=== PATIENT | male | born 1975 | race African-American/Black ===

== ENCOUNTER 2020-01-31 12:14 | Emergency (ER) | payer MEDICAID ==
[~2020-01-31] VITALS: Ht 182.9 cm; Wt 77.0 kg
[2020-01-31] MEDS ORDERED: SODIUM CHLORIDE 0.9% 1,000 ML IV ONE (12:26)
[2020-01-31] MEDS ORDERED: LEVETIRACETAM 1000MG/100ML 100 ML IV ONE (12:30)
[2020-01-31 13:00] LABS: HEMATOCRIT. 35.6 % (42.0-52.0); HEMOGLOBIN. 12.5 g/dL (14.0-18.0); MEAN CORPUSCULAR HEMOGLOBIN 37.4 pg (28.0-32.0); MEAN CORPUSCULAR VOLUME 106.4 fL (80.0-94.0); MEAN PLATELET VOLUME 8.5 fl (7.4-10.4); PLATELET 109 x1000/uL (130-400); RED BLOOD CELL COUNT 3.35 mill/uL (4.7-6.1); RED CELL DISTRIBUTION WIDTH 16.6 % (11.6-14.6)
[2020-01-31 13:06] LABS: CHLORIDE 100 mEq/L (98-107)
[2020-01-31 13:11] LABS: ETHANOL BLOOD < 10 mg/dL
[2020-01-31 13:14] LABS: CLARITY URINE CLOUDY (CLEAR); COLOR URINE DK YELLOW (YELLOW); KETONES URINE TRACE (NEGATIVE); LEUKOCYTE ESTERASE URINE NEGATIVE (NEGATIVE); NITRITE URINE NEGATIVE (NEGATIVE); OCCULT BLOOD URINE TRACE (NEGATIVE); PROTEIN URINE 2+ (NEGATIVE); SPECIFIC GRAVITY URINE 1.022 (1.005-1.030)
[2020-01-31 13:24] LABS: *COCAINE SCREEN URINE NEGATIVE (NEGATIVE); METHADONE URINE SCREEN NEGATIVE (NEGATIVE)
[2020-01-31 13:25] LABS: *AMPHETAMINES SCREEN URINE NEGATIVE (NEGATIVE); *BARBITURATES SCREEN URINE NEGATIVE (NEGATIVE); *BENZODIAZEPINES SCREEN URINE NEGATIVE (NEGATIVE); CANNABINOID URINE SCREEN PRESUMTIVE POSITIVE (NEGATIVE); OPIATES URINE SCREEN NEGATIVE (NEGATIVE); PHENCYCLIDINE URINE SCREEN NEGATIVE (NEGATIVE)
[2020-01-31 13:28] LABS: PLATELET ESTIMATE DECREASED
[2020-01-31] MEDS ORDERED: POTASSIUM CHLORIDE 20MEQ TABLET SR PO ONE (15:30)
[2020-01-31 18:22] VITALS: BP 134/79
== END 2020-01-31 18:26 | disposition home or self-care (01) ==
LOC: ER 12:14
DX: G40.909 Epilepsy, unspecified, not intractable, without status epilepticus (principal); E87.6 Hypokalemia; I10 Essential (primary) hypertension; S60.511A Abrasion of right hand, initial encounter; W01.0XXA Fall on same level from slipping, tripping and stumbling without subsequent striking against object, initial encounter; Y93.89 Activity, other specified; Y92.89 Other specified places as the place of occurrence of the external cause; Z87.19 Personal history of other diseases of the digestive system
CPT/HCPCS: 36415; 70450; 80053; 80305; 80320; 81003; 85025; 96365; 99285; J1953; J7030; G0480

== ENCOUNTER 2020-12-23 19:45 | Emergency (ER) | payer MEDICAID ==
[~2020-12-23] VITALS: Ht 172.7 cm; Wt 70.0 kg
[2020-12-23] MEDS ORDERED: LEVETIRACETAM 500MG PREMIX 100 ML IV ONE (20:15)
[2020-12-23 20:21] LABS: BASOPHILS % 1.4 % (0.0-2.0); EOSINOPHILS % 1.6 % (0.0-5.0); HEMATOCRIT. 35.5 % (42.0-52.0); HEMOGLOBIN. 11.9 g/dL (14.0-18.0); LYMPHOCYTES % 16.2 % (20.0-50.0); MEAN CORPUSCULAR HEMOGLOBIN 36.5 pg (28.0-32.0); MEAN CORPUSCULAR VOLUME 108.6 fL (80.0-94.0); MEAN PLATELET VOLUME 7.1 fl (7.4-10.4); MONOCYTES % 9.7 % (2.0-8.0); NEUTROPHILS % 71.1 % (40.0-76.0); PLATELET 432 x1000/uL (130-400); RED BLOOD CELL COUNT 3.27 mill/uL (4.7-6.1); RED CELL DISTRIBUTION WIDTH 14.7 % (11.6-14.6)
[2020-12-23 20:24] LABS: CLARITY URINE CLEAR (CLEAR); COLOR URINE DARK YELLOW (YELLOW); KETONES URINE TRACE (NEGATIVE); LEUKOCYTE ESTERASE URINE NEGATIVE (NEGATIVE); NITRITE URINE NEGATIVE (NEGATIVE); OCCULT BLOOD URINE NEGATIVE (NEGATIVE); PH URINE 6.5 (4.5-8.0); PROTEIN URINE 2+ (NEGATIVE); SPECIFIC GRAVITY URINE 1.028 (1.005-1.030)
[2020-12-23 20:28] LABS: CHLORIDE 95 mEq/L (98-107)
[2020-12-23 20:32] LABS: ETHANOL BLOOD < 10 mg/dL
[2020-12-23 20:34] LABS: *AMPHETAMINES SCREEN URINE NEGATIVE (NEGATIVE); *BARBITURATES SCREEN URINE NEGATIVE (NEGATIVE); *BENZODIAZEPINES SCREEN URINE NEGATIVE (NEGATIVE); *COCAINE SCREEN URINE NEGATIVE (NEGATIVE)
[2020-12-23 20:35] LABS: CANNABINOID URINE SCREEN PRESUMTIVE POSITIVE (NEGATIVE); METHADONE URINE SCREEN NEGATIVE (NEGATIVE); OPIATES URINE SCREEN NEGATIVE (NEGATIVE); PHENCYCLIDINE URINE SCREEN NEGATIVE (NEGATIVE)
[2020-12-23] MEDS ORDERED: SODIUM CHLORIDE 0.9% 1,000 ML IV ONE (22:00)
[2020-12-23] MEDS ORDERED: KETOROLAC 15MG/ML VIAL IV ONE (22:45)
[2020-12-24 01:04] VITALS: BP 146/99
== END 2020-12-24 01:10 | disposition home or self-care (01) ==
LOC: ER 19:45
DX: R56.9 Unspecified convulsions (principal)
CPT/HCPCS: 36415; 80053; 80305; 80320; 81003; 85025; 93005; 96361; 96365; 96375; 99284; J1885; J1953; G0480

== ENCOUNTER 2021-12-15 05:06 | Inpatient (IN) | payer MEDICAID ==
[~2021-12-15] VITALS: Ht 175.3 cm; Wt 57.4 kg
[2021-12-15] MEDS ORDERED: LEVETIRACETAM 500MG PREMIX 100 ML IV ONE ×2 (05:30)
[2021-12-15] MEDS ORDERED: SODIUM CHLORIDE 0.9% 1,000 ML IV ONE (05:30)
[2021-12-15 06:32] LABS: CHLORIDE 93 mEq/L (98-107)
[2021-12-15 06:40] LABS: ETHANOL BLOOD 46 mg/dL
[2021-12-15 06:43] LABS: CREATINE KINASE 394 IU/L (39-308)
[2021-12-15 07:27] LABS: VALPROIC ACID < 3.0 ug/mL (50-100)
[2021-12-15 07:48] LABS: BASOPHILS % 0.6 % (0.0-2.0); EOSINOPHILS % 2.7 % (0.0-5.0); HEMATOCRIT. 40.6 % (42.0-52.0); LYMPHOCYTES % 13.8 % (20.0-50.0); MEAN CORPUSCULAR HEMOGLOBIN 35.2 pg (28.0-32.0); MEAN CORPUSCULAR VOLUME 102.4 fL (80.0-94.0); MEAN PLATELET VOLUME 8.9 fl (7.4-10.4); MONOCYTES % 7.8 % (2.0-8.0); NEUTROPHILS % 75.1 % (40.0-76.0); PLATELET 184 x1000/uL (130-400); RED BLOOD CELL COUNT 3.97 mill/uL (4.7-6.1); RED CELL DISTRIBUTION WIDTH 15.7 % (11.6-14.6)
[2021-12-15] MEDS ORDERED: SODIUM CHLORIDE 0.9% 1,000 ML IV NR (08:30)
[2021-12-15 08:43] LABS: BG BASE EXCESS -4.9 mmol/L (-2.0-2.0); BG CARBOXYHEMOGLOBIN 2.1 % (0.5-1.5); BG DEOXYHEMOGLOBIN 2.9 % (0.0-5.0); BG HCO3 ACT 18.9 mmol/L (22.0-26.0); BG METHEMOGLOBIN 0.1 % (0.0-1.5); BG OXYHEMOGLOBIN 94.9 % (94.0-97.0); BG PCO2 31.4 mmHg (35.0-45.0); BG PH 7.398 (7.350-7.450); BG PO2 96.2 mmHg (75.0-100.0); BG SAMPLE SITE RIGHT RADIAL; BG TOTAL HEMOGLOBIN 12.2 g/dL (12.0-18.0); BG VENT MODE ROOM AIR
[2021-12-15] MEDS ORDERED: SODIUM BICARBONATE 8.4% 1 MEQ/ML 50ML SYR IV ONE (11:45)
[2021-12-15 12:28] LABS: CHLORIDE 98 mEq/L (98-107)
[2021-12-15 12:34] LABS: ETHANOL BLOOD < 10 mg/dL
[2021-12-15 14:24] LABS: CLARITY URINE CLEAR (CLEAR); COLOR URINE YELLOW (YELLOW); KETONES URINE TRACE (NEGATIVE); LEUKOCYTE ESTERASE URINE NEGATIVE (NEGATIVE); NITRITE URINE NEGATIVE (NEGATIVE); OCCULT BLOOD URINE NEGATIVE (NEGATIVE); PROTEIN URINE 1+ (NEGATIVE); SPECIFIC GRAVITY URINE 1.018 (1.005-1.030)
[2021-12-15 14:44] LABS: METHADONE URINE SCREEN NEGATIVE (NEGATIVE); OPIATES URINE SCREEN NEGATIVE (NEGATIVE)
[2021-12-15 14:45] LABS: *AMPHETAMINES SCREEN URINE NEGATIVE (NEGATIVE); *BARBITURATES SCREEN URINE NEGATIVE (NEGATIVE); *BENZODIAZEPINES SCREEN URINE NEGATIVE (NEGATIVE); *COCAINE SCREEN URINE NEGATIVE (NEGATIVE); CANNABINOID URINE SCREEN NEGATIVE (NEGATIVE); PHENCYCLIDINE URINE SCREEN NEGATIVE (NEGATIVE)
[2021-12-15 16:00] VITALS: BP 136/96
[2021-12-15] MEDS ORDERED: DIPHENHYDRAMINE 50MG/ML VIAL IV PRN (16:45)
[2021-12-15] MEDS ORDERED: ONDANSETRON HCL 4MG/2ML INJ IV PRN (16:45)
[2021-12-15] MEDS ORDERED: NA PHOS,M-B/NA PHOS,DI-BA ENEMA 118ML PR PRN (16:45)
[2021-12-15] MEDS ORDERED: MAGNESIUM/ALUMINUM HYDROXIDE/SIMETHICONE 30ML UDC PO PRN (16:45)
[2021-12-15] MEDS ORDERED: CLONIDINE 0.1MG TABLET PO PRN (16:45)
[2021-12-15] MEDS ORDERED: ACETAMINOPHEN 650MG SUPP PR PRN (16:45)
[2021-12-15] MEDS ORDERED: DOCUSATE SODIUM 100MG CAPSULE PO PRN (16:45)
[2021-12-15] MEDS ORDERED: LORAZEPAM 0.5MG TABLET PO PRN (16:45)
[2021-12-15] MEDS ORDERED: IPRATROPIUM/ALBUTEROL 0.5-3(2.5)MG/3ML NEB NEB PRN (16:45)
[2021-12-15] MEDS ORDERED: LEVETIRACETAM 500 MG in SODIUM CHLORIDE 0.9% 100 ML IV SCH (16:45)
[2021-12-15] MEDS ORDERED: ACETAMINOPHEN 325MG TABLET PO PRN (16:45)
[2021-12-15] MEDS ORDERED: GUAIFENESIN 200MG/10ML SUGAR FREE UDC PO PRN (16:45)
[2021-12-15] MEDS ORDERED: HYDROCODONE/ACETAMINOPHEN 5/325MG TABLET PO PRN (16:45)
[2021-12-15] MEDS ORDERED: NALOXONE HCL 0.4MG/ML VIAL IV PRN (17:00)
[2021-12-15] MEDS: DEXT 5%/0.9% NACL 1,000 ML IV SCH (17:42)
[2021-12-15] MEDS: PANTOPRAZOLE SODIUM 40 MG/VIAL IV SCH (17:42)
[2021-12-15] MEDS ORDERED: KEPP500 MT (19:43)
[2021-12-15] MEDS ORDERED: LOPHC2 MT (19:43)
[2021-12-15] MEDS ORDERED: METO-396 PO (19:43)
[2021-12-15 19:59] VITALS: BP 136/96
[2021-12-15 20:00] VITALS: BP 157/87
[2021-12-15] MEDS: PIPERACILLIN/TAZOBACTAM 3.375 G in DEXTROSE 5% WATER 50 ML IV SCH (22:05)
[2021-12-15] MEDS: LACTULOSE 20G/30ML UDC PO SCH (22:05)
[2021-12-15] MEDS: LEVETIRACETAM 500MG PREMIX 100 ML IV SCH (22:06)
[2021-12-15] MEDS ORDERED: FOLIC ACID 1 MG, THIAMINE HCL 100 MG, MVI, ADULT NO.1 10 ML in DEXTROSE 5% WATER 1,000 ML IV ONE ×4 (23:15)
[2021-12-15 23:27] LABS: CREATINE KINASE 302 IU/L (39-308)
[2021-12-16] VITALS: BP 150/86
[2021-12-16 04:00] VITALS: BP 109/73
[2021-12-16] MEDS: LACTULOSE 20G/30ML UDC PO SCH ×2 (06:00→12:57)
[2021-12-16] MEDS: PIPERACILLIN/TAZOBACTAM 3.375 G in DEXTROSE 5% WATER 50 ML IV SCH ×2 (06:00→12:57)
[2021-12-16] MEDS: DEXT 5%/0.9% NACL 1,000 ML IV SCH ×2 (06:20→17:56)
[2021-12-16] MEDS ORDERED: LIDOCAINE HCL 1% 20ML VIAL (Pyxis) INJ ONE (07:39)
[2021-12-16 08:00] VITALS: BP 120/77
[2021-12-16 08:12] LABS: BASOPHILS % 0.5 % (0.0-2.0); EOSINOPHILS % 7.2 % (0.0-5.0); HEMATOCRIT. 37.7 % (42.0-52.0); HEMOGLOBIN. 12.9 g/dL (14.0-18.0); MEAN CORPUSCULAR HEMOGLOBIN 34.8 pg (28.0-32.0); MEAN CORPUSCULAR VOLUME 101.6 fL (80.0-94.0); MONOCYTES % 6.3 % (2.0-8.0); RED BLOOD CELL COUNT 3.71 mill/uL (4.7-6.1); RED CELL DISTRIBUTION WIDTH 15.8 % (11.6-14.6)
[2021-12-16 08:13] LABS: CHLORIDE 102 mEq/L (98-107)
[2021-12-16 08:24] LABS: LDL CHOLESTEROL 43 mg/dL (5-100); T4 FREE 0.86 ng/dL (0.76-1.46)
[2021-12-16 08:26] LABS: CREATINE KINASE MB FRACTION 1.4 ng/mL (0.5-3.6); HDL CHOLESTEROL 14 mg/dL (40-59)
[2021-12-16] MEDS ORDERED: THIAMINE HCL 100MG TABLET PO SCH (09:00)
[2021-12-16 09:08] LABS: MEAN PLATELET VOLUME 9.6 fl (7.4-10.4)
[2021-12-16 09:09] LABS: PLATELET 161 x1000/uL (130-400)
[2021-12-16] MEDS: PANTOPRAZOLE SODIUM 40 MG/VIAL IV SCH (11:38)
[2021-12-16] MEDS: LEVETIRACETAM 500MG PREMIX 100 ML IV SCH (11:40)
[2021-12-16 12:00] VITALS: BP 120/78
[2021-12-16] MEDS ORDERED: POTASSIUM CHLORIDE 20MEQ TABLET SR PO NR (12:41)
[2021-12-16 16:00] VITALS: BP 119/81
[2021-12-16] MEDS ORDERED: FAMO-135 PO (16:25)
[2021-12-16] MEDS ORDERED: KEPP500 MT (16:25)
[2021-12-16] MEDS ORDERED: CHOL4PAC20 MT (16:25)
[2021-12-16] MEDS ORDERED: LACT10SO3 MT (16:25)
[2021-12-16] MEDS ORDERED: CHOLESTYRAMINE/SUCROSE 4G POWDER PACKET PO SCH (17:50)
[2021-12-16 18:17] VITALS: BP 119/81
== END 2021-12-16 19:08 | disposition home or self-care (01) | DRG 53 ==
LOC: ER 05:06 → 6WST 13:49 → EDBEDREQ 13:51 → EDBEDREQTM 13:51 → ENRESERV 15:18
PROVIDERS: ADMIT Internal Medicine; ATTEND Internal Medicine
PROC: 4A10X4Z Monitoring of Central Nervous Electrical Activity, External Approach (ICD-10-PCS; principal; 2021-12-16)
PROC: 02HV33Z Insertion of Infusion Device into Superior Vena Cava, Percutaneous Approach (ICD-10-PCS; 2021-12-16)
PROC: B5181ZA Fluoroscopy of Superior Vena Cava using Low Osmolar Contrast, Guidance (ICD-10-PCS; 2021-12-16)
PROC: B548ZZA Ultrasonography of Superior Vena Cava, Guidance (ICD-10-PCS; 2021-12-16)
DX: G40.909 Epilepsy, unspecified, not intractable, without status epilepticus (principal); E87.2 Acidosis; E72.20 Disorder of urea cycle metabolism, unspecified; E87.1 Hypo-osmolality and hyponatremia; E87.5 Hyperkalemia; E78.5 Hyperlipidemia, unspecified; K86.1 Other chronic pancreatitis; I10 Essential (primary) hypertension; E86.0 Dehydration; Z20.822 Contact with and (suspected) exposure to COVID-19; F10.10 Alcohol abuse, uncomplicated; Y90.2 Blood alcohol level of 40-59 mg/100 ml; Z93.0 Tracheostomy status; Z79.899 Other long term (current) drug therapy; Z91.19 Patient's noncompliance with other medical treatment and regimen; Z87.891 Personal history of nicotine dependence
CPT/HCPCS: 36415; 36573; 36600; 71045; 76700; 80048; 80053; 80061; 80165; 80185; 80305; 80320; 81003; 82140; 82375; 82550; 82553; 82805; 83605; 84132; 84439; 84443; 84484; 85025; 87426; 95816; 97162; 99285; C1725; C1769; C9113; J1200; J1953; J2543; J3411; J3490; J7030; J7042; J7060; J7070; G0480

== ENCOUNTER 2022-01-16 09:07 | Emergency (ER) | payer MEDICAID ==
[~2022-01-16] VITALS: Ht 190.5 cm; Wt 86.0 kg
[~2022-01-16 09:07] MED LIST: CHOL4PAC20 MT; FAMO-135 PO; KEPP500 MT; LACT10SO3 MT; METO-396 PO
[2022-01-16] MEDS ORDERED: LORAZEPAM 2MG/ML CPJ IV ONE (09:15)
[2022-01-16] MEDS ORDERED: LEVETIRACETAM 1000MG PREMIX 100 ML IV ONE (09:15)
[2022-01-16] MEDS ORDERED: LORAZEPAM 2MG/ML CPJ ONE (09:22)
[2022-01-16 11:15] LABS: BASOPHILS % 0.5 % (0.0-2.0); EOSINOPHILS % 1.3 % (0.0-5.0); HEMATOCRIT. 35.2 % (42.0-52.0); HEMOGLOBIN. 12.4 g/dL (14.0-18.0); LYMPHOCYTES % 7.6 % (20.0-50.0); MEAN CORPUSCULAR HEMOGLOBIN 35.9 pg (28.0-32.0); MEAN CORPUSCULAR VOLUME 101.9 fL (80.0-94.0); MEAN PLATELET VOLUME 8.8 fl (7.4-10.4); MONOCYTES % 4.2 % (2.0-8.0); NEUTROPHILS % 86.4 % (40.0-76.0); PLATELET 116 x1000/uL (130-400); RED BLOOD CELL COUNT 3.45 mill/uL (4.7-6.1); RED CELL DISTRIBUTION WIDTH 14.7 % (11.6-14.6)
[2022-01-16 11:38] LABS: CHLORIDE 103 mEq/L (98-107)
[2022-01-16 11:42] LABS: ETHANOL BLOOD 42 mg/dL
[2022-01-16 12:32] LABS: CLARITY URINE CLEAR (CLEAR); COLOR URINE YELLOW (YELLOW); KETONES URINE TRACE (NEGATIVE); LEUKOCYTE ESTERASE URINE NEGATIVE (NEGATIVE); NITRITE URINE NEGATIVE (NEGATIVE); OCCULT BLOOD URINE NEGATIVE (NEGATIVE); PH URINE 5.5 (4.5-8.0); PROTEIN URINE 2+ (NEGATIVE); SPECIFIC GRAVITY URINE 1.025 (1.005-1.030); UROBILINOGEN URINE 0.2 E.U./dL (0.2-1.0)
[2022-01-16 12:48] LABS: *AMPHETAMINES SCREEN URINE NEGATIVE (NEGATIVE); *BARBITURATES SCREEN URINE NEGATIVE (NEGATIVE); *BENZODIAZEPINES SCREEN URINE NEGATIVE (NEGATIVE); *COCAINE SCREEN URINE NEGATIVE (NEGATIVE); METHADONE URINE SCREEN NEGATIVE (NEGATIVE); OPIATES URINE SCREEN NEGATIVE (NEGATIVE)
[2022-01-16 12:49] LABS: CANNABINOID URINE SCREEN PRESUMTIVE POSITIVE (NEGATIVE); PHENCYCLIDINE URINE SCREEN NEGATIVE (NEGATIVE)
[2022-01-16] MEDS ORDERED: KEPP500 MT (13:35)
[2022-01-16 13:56] VITALS: BP 112/66
== END 2022-01-16 14:00 | disposition home or self-care (01) ==
LOC: ER 09:13
DX: R56.9 Unspecified convulsions (principal); R74.01 Elevation of levels of liver transaminase levels; D69.6 Thrombocytopenia, unspecified; D64.9 Anemia, unspecified; I10 Essential (primary) hypertension; F10.29 Alcohol dependence with unspecified alcohol-induced disorder; Y90.2 Blood alcohol level of 40-59 mg/100 ml
CPT/HCPCS: 36415; 70450; 80053; 80305; 80320; 81003; 85025; 93005; 96365; 96366; 96375; 99291; J1953; J2060; G0480

== ENCOUNTER 2022-02-06 07:55 | Inpatient (IN) | payer MEDICAID ==
[~2022-02-06] VITALS: Ht 177.8 cm; Wt 69.1 kg
[2022-02-06] MEDS ORDERED: LACTATED RINGERS 1,000 ML IV SCH (09:30)
[2022-02-06] MEDS ORDERED: LEVETIRACETAM 500MG PREMIX 100 ML IV ONE ×3 (09:30)
[2022-02-06 09:58] LABS: CLARITY URINE CLOUDY (CLEAR); COLOR URINE YELLOW (YELLOW); KETONES URINE NEGATIVE (NEGATIVE); LEUKOCYTE ESTERASE URINE TRACE (NEGATIVE); NITRITE URINE POSITIVE (NEGATIVE); OCCULT BLOOD URINE NEGATIVE (NEGATIVE); PH URINE 8.5 (4.5-8.0); PROTEIN URINE TRACE (NEGATIVE); UROBILINOGEN URINE 0.2 E.U./dL (0.2-1.0)
[2022-02-06 10:03] LABS: BASOPHILS % 1.5 % (0.0-2.0); HEMATOCRIT. 37.6 % (42.0-52.0); HEMOGLOBIN. 11.5 g/dL (14.0-18.0); LYMPHOCYTES % 21.5 % (20.0-50.0); MEAN CORPUSCULAR HEMOGLOBIN 34.9 pg (28.0-32.0); MONOCYTES % 11.3 % (2.0-8.0); NEUTROPHILS % 64.7 % (40.0-76.0); PLATELET 193 x1000/uL (130-400); RED CELL DISTRIBUTION WIDTH 15.1 % (11.6-14.6)
[2022-02-06 10:04] LABS: CHLORIDE 116 mEq/L (98-107)
[2022-02-06 10:09] LABS: ETHANOL BLOOD 211 mg/dL
[2022-02-06 10:27] LABS: *AMPHETAMINES SCREEN URINE NEGATIVE (NEGATIVE); *BARBITURATES SCREEN URINE NEGATIVE (NEGATIVE); *BENZODIAZEPINES SCREEN URINE PRESUMTIVE POSITIVE (NEGATIVE); *COCAINE SCREEN URINE NEGATIVE (NEGATIVE)
[2022-02-06 10:28] LABS: CANNABINOID URINE SCREEN PRESUMTIVE POSITIVE (NEGATIVE); METHADONE URINE SCREEN NEGATIVE (NEGATIVE); OPIATES URINE SCREEN NEGATIVE (NEGATIVE); PHENCYCLIDINE URINE SCREEN NEGATIVE (NEGATIVE)
[2022-02-06] MEDS ORDERED: LEVETIRACETAM 1000MG PREMIX 100 ML IV SCH (10:45)
[2022-02-06 10:54] LABS: PLATELET ESTIMATE NORMAL
[2022-02-06] MEDS ORDERED: CEFTRIAXONE 1 G PREMIX 50 ML IV ONE (12:00)
[2022-02-06] MEDS ORDERED: LORAZEPAM 2MG/ML CPJ IV PRN (13:15)
[2022-02-06] MEDS ORDERED: ONDANSETRON HCL 4MG/2ML INJ IV PRN (13:15)
[2022-02-06] MEDS ORDERED: ACETAMINOPHEN 325MG TABLET PO PRN (13:15)
[2022-02-06] MEDS ORDERED: FOLIC ACID 1 MG, THIAMINE HCL 100 MG, MVI, ADULT NO.1 10 ML in DEXTROSE 5% WATER 1,000 ML IV ONE ×4 (14:00)
[2022-02-06] MEDS: CHLORDIAZEPOXIDE 25MG CAPSULE PO SCH ×2 (14:46→21:35)
[2022-02-06 16:20] VITALS: BP 134/83
[2022-02-06 17:34] VITALS: BP 134/83
[2022-02-06 20:00] VITALS: BP 142/76
[2022-02-06] MEDS: LEVETIRACETAM 500MG TABLET PO SCH (21:35)
[2022-02-07] VITALS: BP 128/88
[2022-02-07 04:00] VITALS: BP 148/99
[2022-02-07] MEDS: CHLORDIAZEPOXIDE 25MG CAPSULE PO SCH ×3 (05:55→21:12)
[2022-02-07 08:00] VITALS: BP 121/73
[2022-02-07] MEDS: LEVETIRACETAM 500MG TABLET PO SCH ×2 (08:47→21:12)
[2022-02-07 12:00] VITALS: BP 131/77
[2022-02-07] MEDS ORDERED: CEFTRIAXONE 1 G PREMIX 50 ML IV SCH (13:00)
[2022-02-07] MEDS: CEFTRIAXONE 1,000 MG in DEXTROSE 5% WATER 50 ML IV SCH (13:56)
[2022-02-07 16:00] VITALS: BP 146/92
[2022-02-07 20:00] VITALS: BP 136/79
[2022-02-07] MEDS ORDERED: ACETAMINOPHEN 325MG TABLET PO PRN (21:30)
[2022-02-08] VITALS: BP 150/94
[2022-02-08 04:00] VITALS: BP 149/93
[2022-02-08] MEDS: CHLORDIAZEPOXIDE 25MG CAPSULE PO SCH ×3 (06:21→22:07)
[2022-02-08 07:16] LABS: CHLORIDE 104 mEq/L (98-107)
[2022-02-08 08:00] VITALS: BP 119/78
[2022-02-08] MEDS: LEVETIRACETAM 500MG TABLET PO SCH ×2 (08:54→22:07)
[2022-02-08 09:47] LABS: BASOPHILS % 0.5 % (0.0-2.0); EOSINOPHILS % 4.5 % (0.0-5.0); HEMATOCRIT. 34.8 % (42.0-52.0); HEMOGLOBIN. 11.8 g/dL (14.0-18.0); LYMPHOCYTES % 16.4 % (20.0-50.0); MEAN PLATELET VOLUME 8.7 fl (7.4-10.4); MONOCYTES % 14.9 % (2.0-8.0); NEUTROPHILS % 63.7 % (40.0-76.0); PLATELET 167 x1000/uL (130-400); RED BLOOD CELL COUNT 3.46 mill/uL (4.7-6.1); RED CELL DISTRIBUTION WIDTH 14.4 % (11.6-14.6)
[2022-02-08 10:12] LABS: MEAN CORPUSCULAR VOLUME 100.7 fL (80.0-94.0)
[2022-02-08] MEDS ORDERED: POTASSIUM CHLORIDE 20MEQ TABLET SR PO NR (11:15)
[2022-02-08 12:00] VITALS: BP 138/90
[2022-02-08] MEDS: CEFTRIAXONE 1,000 MG in DEXTROSE 5% WATER 50 ML IV SCH (13:32)
[2022-02-08 15:57] VITALS: BP 134/81
[2022-02-08] MEDS ORDERED: VANCOMYCIN 1.25GM PMX (XELLIA) 250 ML IV SCH (18:00)
[2022-02-08] MEDS: METOCLOPRAMIDE HCL 10MG/2ML VIAL IV SCH (18:36)
[2022-02-08 20:00] VITALS: BP 134/88
[2022-02-09] VITALS: BP 134/72
[2022-02-09] MEDS: VANCOMYCIN 1GM PMX (XELLIA) 200 ML IV SCH ×2 (01:27→09:30)
[2022-02-09] MEDS: METOCLOPRAMIDE HCL 10MG/2ML VIAL IV SCH ×3 (01:28→14:01)
[2022-02-09 04:00] VITALS: BP 136/73
[2022-02-09] MEDS: CHLORDIAZEPOXIDE 25MG CAPSULE PO SCH ×2 (05:30→14:01)
[2022-02-09 08:00] VITALS: BP 140/64
[2022-02-09 09:15] LABS: BASOPHILS % 0.9 % (0.0-2.0); EOSINOPHILS % 7.7 % (0.0-5.0); HEMATOCRIT. 32.7 % (42.0-52.0); HEMOGLOBIN. 11.1 g/dL (14.0-18.0); LYMPHOCYTES % 17.6 % (20.0-50.0); MEAN CORPUSCULAR HEMOGLOBIN 34.2 pg (28.0-32.0); MEAN CORPUSCULAR VOLUME 100.8 fL (80.0-94.0); MEAN PLATELET VOLUME 8.6 fl (7.4-10.4); MONOCYTES % 14.3 % (2.0-8.0); NEUTROPHILS % 59.5 % (40.0-76.0); PLATELET 169 x1000/uL (130-400); RED BLOOD CELL COUNT 3.25 mill/uL (4.7-6.1); RED CELL DISTRIBUTION WIDTH 14.3 % (11.6-14.6)
[2022-02-09] MEDS: LEVETIRACETAM 500MG TABLET PO SCH (09:30)
[2022-02-09 09:33] LABS: CHLORIDE 109 mEq/L (98-107)
[2022-02-09 12:00] VITALS: BP 135/67
[2022-02-09] MEDS: CEFTRIAXONE 1,000 MG in DEXTROSE 5% WATER 50 ML IV SCH (14:02)
[2022-02-09] MEDS ORDERED: SULF1TAB48 MT (15:16)
[2022-02-09] MEDS ORDERED: FAMO-135 PO (15:16)
[2022-02-09] MEDS ORDERED: KEPP500 MT (15:16)
[2022-02-09 16:00] VITALS: BP 138/71
[2022-02-09 17:00] VITALS: BP 145/80
== END 2022-02-09 18:22 | disposition home or self-care (01) | DRG 53 ==
LOC: ER 08:11 → 6WST 12:02 → EDBEDREQTM 12:04 → EDBEDREQ 12:04 → ENRESERV 12:46
PROVIDERS: ADMIT Internal Medicine; ATTEND Internal Medicine
DX: G40.509 Epileptic seizures related to external causes, not intractable, without status epilepticus (principal); K85.90 Acute pancreatitis without necrosis or infection, unspecified; E87.8 Other disorders of electrolyte and fluid balance, not elsewhere classified; N39.0 Urinary tract infection, site not specified; Y90.7 Blood alcohol level of 200-239 mg/100 ml; I10 Essential (primary) hypertension; F12.10 Cannabis abuse, uncomplicated; K86.1 Other chronic pancreatitis; Z20.822 Contact with and (suspected) exposure to COVID-19; E78.5 Hyperlipidemia, unspecified; K56.7 Ileus, unspecified; E87.6 Hypokalemia; B95.7 Other staphylococcus as the cause of diseases classified elsewhere; F10.139 Alcohol abuse with withdrawal, unspecified; Z91.19 Patient's noncompliance with other medical treatment and regimen; Z79.899 Other long term (current) drug therapy; Z71.41 Alcohol abuse counseling and surveillance of alcoholic
CPT/HCPCS: 36415; 71045; 74176; 80048; 80053; 80076; 80305; 80320; 81003; 82962; 83880; 84145; 84153; 84484; 85025; 87077; 87186; 87426; 93005; 99291; C1893; J0696; J1953; J2765; J3370; J3411; J3490; J7040; J7060; J7070; G0103; G0480

== ENCOUNTER 2023-03-20 15:35 | Emergency (ER) | payer MEDICAID ==
[~2023-03-20] VITALS: Ht 175.3 cm; Wt 80.0 kg
[~2023-03-20 15:35] MED LIST changes: -LACT10SO3 MT; -METO-396 PO; +SULF1TAB48 MT
[2023-03-20] MEDS ORDERED: LEVETIRACETAM 500MG TABLET PO ONE (16:00)
[2023-03-20 17:11] LABS: BASOPHILS % 0.9 % (0.0-2.0); EOSINOPHILS % 5.7 % (0.0-5.0); HEMATOCRIT. 36.8 % (42.0-52.0); HEMOGLOBIN. 12.6 g/dL (14.0-18.0); LYMPHOCYTES % 19.1 % (20.0-50.0); MEAN CORPUSCULAR HEMOGLOBIN 33.8 pg (28.0-32.0); MEAN CORPUSCULAR VOLUME 98.4 fL (80.0-94.0); MEAN PLATELET VOLUME 9.5 fl (7.4-10.4); NEUTROPHILS % 63.3 % (40.0-76.0); PLATELET 223 x1000/uL (130-400); RED BLOOD CELL COUNT 3.74 mill/uL (4.7-6.1); RED CELL DISTRIBUTION WIDTH 16.5 % (11.6-14.6)
[2023-03-20 17:13] LABS: CLARITY URINE CLEAR (CLEAR); COLOR URINE YELLOW (YELLOW); KETONES URINE NEGATIVE (NEGATIVE); LEUKOCYTE ESTERASE URINE NEGATIVE (NEGATIVE); NITRITE URINE NEGATIVE (NEGATIVE); OCCULT BLOOD URINE NEGATIVE (NEGATIVE); PROTEIN URINE 2+ (NEGATIVE); SPECIFIC GRAVITY URINE 1.013 (1.005-1.030); UROBILINOGEN URINE 0.2 E.U./dL (0.2-1.0)
[2023-03-20 17:43] LABS: CHLORIDE 104 mEq/L (98-107)
[2023-03-20 17:51] LABS: ETHANOL BLOOD < 10 mg/dL
[2023-03-20 18:01] LABS: PROTHROMBIN TIME 10.8 sec (9.6-11.0)
[2023-03-20] MEDS ORDERED: KEPP500 MT (19:49)
[2023-03-20 20:00] VITALS: BP 140/82
== END 2023-03-20 20:09 | disposition home or self-care (01) ==
LOC: ER 15:35
DX: R56.9 Unspecified convulsions (principal)
CPT/HCPCS: 36415; 80053; 80320; 81003; 85025; 99283; G0480

== ENCOUNTER 2023-04-06 10:02 | Emergency (ER) | payer MEDICAID ==
[~2023-04-06] VITALS: Ht 182.9 cm; Wt 73.0 kg
[2023-04-06 10:19] VITALS: BP 120/81
[2023-04-06 12:00] LABS: BASOPHILS % 1.7 % (0.0-2.0); HEMATOCRIT. 44.1 % (42.0-52.0); LYMPHOCYTES % 32.6 % (20.0-50.0); MEAN CORPUSCULAR HEMOGLOBIN 33.3 pg (28.0-32.0); MEAN CORPUSCULAR VOLUME 97.7 fL (80.0-94.0); MONOCYTES % 8.3 % (2.0-8.0); NEUTROPHILS % 50.4 % (40.0-76.0); RED BLOOD CELL COUNT 4.51 mill/uL (4.7-6.1); RED CELL DISTRIBUTION WIDTH 15.1 % (11.6-14.6)
[2023-04-06 12:05] LABS: CHLORIDE 107 mEq/L (98-107)
[2023-04-06 12:13] LABS: ETHANOL BLOOD 346 mg/dL (-10)
[2023-04-06 12:43] LABS: PLATELET 175 x1000/uL (130-400)
== END 2023-04-06 15:09 | disposition home or self-care (01) ==
LOC: ER 10:21
DX: F10.129 Alcohol abuse with intoxication, unspecified (principal); R51.9 Headache, unspecified; Z86.59 Personal history of other mental and behavioral disorders; Y90.8 Blood alcohol level of 240 mg/100 ml or more
CPT/HCPCS: 36415; 80053; 80320; 85025; 99284; G0480

== ENCOUNTER 2023-04-10 14:12 | Emergency (ER) | payer MEDICAID ==
[~2023-04-10] VITALS: Ht 177.8 cm; Wt 80.0 kg
[2023-04-10 22:07] VITALS: BP 110/62
== END 2023-04-10 22:10 | disposition home or self-care (01) ==
LOC: ER 14:12
DX: F10.129 Alcohol abuse with intoxication, unspecified (principal); I10 Essential (primary) hypertension; Y90.9 Presence of alcohol in blood, level not specified
CPT/HCPCS: 99283

== ENCOUNTER 2023-04-12 21:37 | Emergency (ER) | payer MEDICAID ==
[~2023-04-12] VITALS: Ht 175.3 cm; Wt 75.0 kg
[2023-04-12] MEDS ORDERED: FOLIC ACID 1 MG, THIAMINE HCL 100 MG, MVI, ADULT NO.1 10 ML in DEXTROSE 5% WATER 1,000 ML IV ONE ×4 (22:00)
[2023-04-12 23:08] LABS: BASOPHILS % 1.3 % (0.0-2.0); EOSINOPHILS % 9.7 % (0.0-5.0); HEMATOCRIT. 38.3 % (42.0-52.0); HEMOGLOBIN. 13.2 g/dL (14.0-18.0); LYMPHOCYTES % 36.7 % (20.0-50.0); MEAN CORPUSCULAR HEMOGLOBIN 33.4 pg (28.0-32.0); MEAN CORPUSCULAR VOLUME 97.2 fL (80.0-94.0); MEAN PLATELET VOLUME 8.5 fl (7.4-10.4); MONOCYTES % 7.9 % (2.0-8.0); NEUTROPHILS % 44.4 % (40.0-76.0); PLATELET 134 x1000/uL (130-400); RED BLOOD CELL COUNT 3.94 mill/uL (4.7-6.1); RED CELL DISTRIBUTION WIDTH 14.5 % (11.6-14.6)
[2023-04-12 23:16] LABS: CHLORIDE 104 mEq/L (98-107)
[2023-04-12 23:24] LABS: ETHANOL BLOOD 295 mg/dL (-10)
[2023-04-13] MEDS ORDERED: ACETAMINOPHEN 325MG TABLET PO NR (06:00)
[2023-04-13 06:31] VITALS: BP 125/62
== END 2023-04-13 06:33 | disposition home or self-care (01) ==
LOC: ER 21:37
DX: F10.129 Alcohol abuse with intoxication, unspecified (principal); Y90.8 Blood alcohol level of 240 mg/100 ml or more
CPT/HCPCS: 36415; 80053; 80320; 85025; 96365; 96366; 99284; J3411; J3490; J7070; G0480

== ENCOUNTER 2023-04-29 23:50 | Emergency (ER) | payer MEDICAID ==
[~2023-04-29] VITALS: Ht 180.3 cm; Wt 77.0 kg
[~2023-04-29 23:50] MED LIST changes: +AMLO5TAB88 PO; -CHOL4PAC20 MT; +FENO160T9 PO; -KEPP500 MT; +LEVE10006 PO; -SULF1TAB48 MT
[2023-04-29 23:52] VITALS: BP 138/98; PULSE 88; RESP 16; TEMP 98.1; O2SAT 100
== END 2023-04-30 00:15 | disposition left against medical advice (07) ==
LOC: ER 23:50
DX: F10.129 Alcohol abuse with intoxication, unspecified (principal); Y90.0 Blood alcohol level of less than 20 mg/100 ml
CPT/HCPCS: 99283